=== PATIENT | female | born 1940 | race Caucasian/White ===

== ENCOUNTER → 2017-10-18 | Outpatient (CLI) | payer MEDICARE, BC ==
[~2017-10-18] MED LIST: APIX5TAB PO; ASCO10004 PO; CANA100T PO; CHOL500045 PO; INSU100V3 SC; IRON PO; LEVO150T5 PO; LOSA25TA5 PO; METF500T5 PO; METO25TA35 PO; NORT10CA PO; OMNIPAQUE 350 MG/ML, 100ML BOTTLE ONE
== END | disposition home or self-care (01) ==
LOC: CFH 12:33
PROVIDERS: ATTEND Surgery
DX: D3A.00 Benign carcinoid tumor of unspecified site (principal); K80.20 Calculus of gallbladder without cholecystitis without obstruction; I10 Essential (primary) hypertension; E11.9 Type 2 diabetes mellitus without complications
CPT/HCPCS: 71260; 74177; Q9967